=== PATIENT | female | born 1985 | race Caucasian/White ===

== ENCOUNTER 2018-03-11 07:59 | Emergency (ER) | payer SELFPAY ==
[~2018-03-11] VITALS: Ht 162.6 cm; Wt 87.0 kg
[2018-03-11] MEDS ORDERED: CARISOPRODOL 350 MG TABLET PO ONE (10:30)
[2018-03-11] MEDS ORDERED: IBUPROFEN 600MG TABLET PO ONE (10:30)
[2018-03-11 11:52] VITALS: BP 124/77
== END 2018-03-11 11:53 | disposition home or self-care (01) ==
LOC: ER 09:29
DX: M54.6 Pain in thoracic spine (principal); M54.5 Low back pain; V49.88XA Car occupant (driver) (passenger) injured in other specified transport accidents, initial encounter; Y93.89 Activity, other specified; Y92.89 Other specified places as the place of occurrence of the external cause; Y99.8 Other external cause status
CPT/HCPCS: 72100; 81025; 99284

== ENCOUNTER 2021-11-27 18:00 | Observation (INO) | payer MEDICAID ==
[~2021-11-27] VITALS: Ht 157.5 cm; Wt 86.2 kg
== END 2021-11-27 22:12 | disposition home or self-care (01) ==
LOC: 8 EST LDRP 18:00
PROVIDERS: ADMIT Obstetrics & Gynecology; ATTEND Obstetrics & Gynecology
DX: O26.853 Spotting complicating pregnancy, third trimester (principal); O62.9 Abnormality of forces of labor, unspecified; Z3A.36 36 weeks gestation of pregnancy
CPT/HCPCS: 59025; 76805; 76818; G0378; 99281

== ENCOUNTER 2023-04-07 20:24 | Emergency (ER) | payer MEDICAID, OTHER ==
[~2023-04-07] VITALS: Ht 157.5 cm; Wt 90.0 kg
[2023-04-07 20:43] VITALS: BP 128/85; O2SAT 99
[2023-04-07] MEDS ORDERED: IBUP-2029 MT (22:09)
[2023-04-07 22:18] VITALS: PULSE 79; RESP 16; TEMP 98.5
== END 2023-04-07 22:20 | disposition home or self-care (01) ==
LOC: ER 20:24
DX: B34.9 Viral infection, unspecified (principal); I49.9 Cardiac arrhythmia, unspecified; Z20.822 Contact with and (suspected) exposure to COVID-19
CPT/HCPCS: 99285; 71045; 87426; 87804 ×2; 93005; C9803

== ENCOUNTER 2023-08-01 21:11 | Emergency (ER) | payer MEDICAID, OTHER ==
[~2023-08-01] VITALS: Ht 157.5 cm; Wt 89.0 kg
[~2023-08-01 21:11] MED LIST: IBUP-2029 MT
[2023-08-01 21:12] VITALS: O2SAT 98
[2023-08-01] MEDS ORDERED: BENZ200C52 MT (23:21)
[2023-08-01 23:54] VITALS: BP 138/63; PULSE 76; RESP 19; TEMP 99.7
== END 2023-08-01 23:57 | disposition home or self-care (01) ==
LOC: ER 21:11
DX: B34.9 Viral infection, unspecified (principal); R05.9 Cough, unspecified; Z87.01 Personal history of pneumonia (recurrent)
CPT/HCPCS: 71045; 99283